=== PATIENT | female | born 2000 | race Caucasian/White ===

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

== ENCOUNTER → 2022-12-28 | Outpatient (CLI) | payer BC ==
[~2022-12-28] MED LIST changes: +FLUT50SP17; -FLUTISP; -HEPARIN SOD (PORCINE) 5000UNITS/ML 1ML VIAL/SYRINGE SQ ONE; -LIDOCAINE 1% MDV 20ML VIAL SQ PRN; -LR 1,000 ML IV ONE; +TRAM50TA2 PO; -ceFAZolin SOD 2 GM in IV 1 EA IV ONE
[2022-12-28 15:07] LABS: CREATININE,RANDOM URINE 21.2 MG/DL
[2022-12-28 15:11] LABS: TOTAL PROTEIN,RANDOM URINE < 6.0 MG/DL (0.0-14.0)
== END ==
LOC: M RAD 09:48
PROVIDERS: ATTEND Obstetrics & Gynecology
DX: O16.3 Unspecified maternal hypertension, third trimester (principal); O28.8 Other abnormal findings on antenatal screening of mother; Z3A.32 32 weeks gestation of pregnancy

== ENCOUNTER → 2023-01-06 | Outpatient (CLI) | payer BC ==
[2023-01-06 13:44] LABS: HEMATOCRIT 32.4 % (36.0-47.0); HEMOGLOBIN 10.1 g/dl (12.0-15.5); MEAN CORPUSCULAR HEMOGLOBIN 23.2 pg (27.0-33.0); MEAN CORPUSCULAR HGB CONC 31.2 g/dl (32.0-36.5); MEAN CORPUSCULAR VOLUME 74.3 fl (80.0-96.0); PLATELET COUNT, AUTOMATED 278 10^3/uL (150-450); RED BLOOD COUNT 4.36 10^6/uL (4.00-5.40)
[2023-01-06 14:10] LABS: ALBUMIN 2.6 G/DL (3.2-5.2); ALKALINE PHOSPHATASE 117 U/L (46-116); ALT/SGPT 19 U/L (7.0-40); AST/SGOT 11 U/L (<34); BILIRUBIN,TOTAL 0.4 MG/DL (0.3-1.2); BLOOD UREA NITROGEN 7 MG/DL (9-23); CALCIUM LEVEL 9.3 MG/DL (8.5-10.1); CARBON DIOXIDE LEVEL 24 MMOL/L (20-31); CHLORIDE LEVEL 104 MMOL/L (98-107); CREATININE FOR GFR 0.54 MG/DL (0.55-1.30); GLUCOSE, FASTING 78 MG/DL (60-100); POTASSIUM SERUM 4.2 MMOL/L (3.5-5.1); SODIUM LEVEL 138 MMOL/L (136-145); TOTAL PROTEIN 6.7 G/DL (5.7-8.2)
== END ==
LOC: M PLALAB 09:38
PROVIDERS: ATTEND Obstetrics & Gynecology
DX: O16.3 Unspecified maternal hypertension, third trimester (principal)

== ENCOUNTER 2023-01-17 17:03 | Outpatient (CLI) | payer BC ==
[~2023-01-17] VITALS: Ht 165.1 cm; Wt 107.8 kg
[2023-01-17 17:19] VITALS: BP 132/65
[2023-01-17] MEDS ORDERED: PRENTAB9 PO (17:30)
[2023-01-17] MEDS ORDERED: ADDE25CA PO (17:30)
[2023-01-17] MEDS ORDERED: HOME MED LIST COMPLETE! XX SCH (17:30)
[2023-01-17 18:04] LABS: APPEARANCE, URINE HAZY (CLEAR); BACTERIA, URINE AUTO 3+ (NEGATIVE); BILIRUBIN, URINE AUTO NEGATIVE (NEGATIVE); BLOOD, URINE BLOOD NEGATIVE (NEGATIVE); COLOR, URINE YELLOW (YELLOW); GLUCOSE, URINE (UA) AUTO 1+ mg/dL (NEGATIVE); KETONE, URINE AUTO NEGATIVE (NEGATIVE); LEUKOCYTE ESTERASE, URINE AUTO 3+ (NEGATIVE); MUCUS, URINE SMALL (NEGATIVE); NITRITE, URINE AUTO NEGATIVE (NEGATIVE); PROTEIN, URINE AUTO NEGATIVE (NEGATIVE); RBC, URINE AUTO 2 /HPF (0-3); SPECIFIC GRAVITY URINE AUTO 1.012 (1.002-1.035); SQUAMOUS EPITHELIAL CELL UR AU 6 /HPF (0-6); UROBILINOGEN, URINE AUTO 0.2 mg/dL (0.0-2.0); WBC, URINE AUTO 9 /HPF (0-3)
[2023-01-17] MEDS ORDERED: FLUCONAZOLE 50MG TABLET PO ONE (18:35)
[2023-01-17 18:58] VITALS: BP 128/59
[2023-01-17] MEDS ORDERED: ACETAMINOPHEN 500 MG TAB PO ONE (19:15)
== END 2023-01-17 19:45 | disposition home or self-care (01) ==
LOC: M LDO 17:03
PROVIDERS: ATTEND Advanced Practice Midwife
DX: O26.893 Other specified pregnancy related conditions, third trimester (principal); M54.50 Low back pain, unspecified; O23.593 Infection of other part of genital tract in pregnancy, third trimester; B37.9 Candidiasis, unspecified; O99.343 Other mental disorders complicating pregnancy, third trimester; F90.0 Attention-deficit hyperactivity disorder, predominantly inattentive type; O13.3 Gestational [pregnancy-induced] hypertension without significant proteinuria, third trimester; O99.213 Obesity complicating pregnancy, third trimester; E66.9 Obesity, unspecified; Z3A.35 35 weeks gestation of pregnancy
CPT/HCPCS: 59025; 76815; 81001; 87081; 87086; G0463

== ENCOUNTER 2023-01-26 22:08 | Outpatient (CLI) | payer BC ==
[~2023-01-26] VITALS: Ht 160 cm; Wt 110.6 kg
[~2023-01-26 22:08] MED LIST changes: +ADDE25CA PO; +PRENTAB9 PO
[2023-01-26 22:34] VITALS: BP 109/55
[2023-01-26] MEDS ORDERED: HOME MED LIST COMPLETE! XX SCH (22:50)
[2023-01-26 23:52] VITALS: BP 124/78
[2023-02-01] MEDS ORDERED: CVS1CHW13 PO (09:55)
== END 2023-01-26 23:59 | disposition home or self-care (01) ==
LOC: M LDO 22:08
PROVIDERS: ATTEND Advanced Practice Midwife
DX: O36.8130 Decreased fetal movements, third trimester, not applicable or unspecified (principal); O13.3 Gestational [pregnancy-induced] hypertension without significant proteinuria, third trimester; O99.343 Other mental disorders complicating pregnancy, third trimester; F90.8 Attention-deficit hyperactivity disorder, other type; Z3A.36 36 weeks gestation of pregnancy
CPT/HCPCS: 59025; G0463

== ENCOUNTER 2023-06-21 11:30 | Inpatient (IN) | payer BC ==
[~2023-06-21] VITALS: Ht 165.1 cm; Wt 86.3 kg
[~2023-06-21 11:30] MED LIST changes: +CVS1CHW13 PO; -FLUT50SP17; +FLUTISP
[2023-06-21] MEDS ORDERED: MED REC IN PROGRESS XX SCH (11:55)
[2023-06-21] MEDS ORDERED: VENL37.598 PO (12:04)
[2023-06-21] MEDS ORDERED: HOME MED LIST COMPLETE! XX SCH (12:05)
[2023-06-21 13:17] LABS: HEMATOCRIT 41.9 % (36.0-47.0); HEMOGLOBIN 13.6 g/dl (12.0-15.5); MEAN CORPUSCULAR HEMOGLOBIN 23.2 pg (27.0-33.0); MEAN CORPUSCULAR HGB CONC 32.5 g/dl (32.0-36.5); MEAN CORPUSCULAR VOLUME 71.5 fl (80.0-96.0); PLATELET COUNT, AUTOMATED 236 10^3/uL (150-450); RED BLOOD COUNT 5.86 10^6/uL (4.00-5.40); WHITE BLOOD COUNT 11.4 10^3/uL (4.0-10.0)
[2023-06-21 13:44] LABS: ETHYL ALCOHOL (ETHANOL) < 0.003 % (0.000-0.010)
[2023-06-21 13:45] LABS: HCG, SERUM QUALITATIVE NEGATIVE (NEGATIVE); SALICYLATE LEVEL < 3.0 MG/DL (<30)
[2023-06-21 13:46] LABS: ALBUMIN 3.7 G/DL (3.2-5.2); ALKALINE PHOSPHATASE 75 U/L (46-116); ALT/SGPT 46 U/L (7.0-40); AST/SGOT 23 U/L (<34); BILIRUBIN,DIRECT 0.1 MG/DL (<0.4); BILIRUBIN,TOTAL 0.3 MG/DL (0.3-1.2); BLOOD UREA NITROGEN 12 MG/DL (9-23); CALCIUM LEVEL 9.1 MG/DL (8.5-10.1); CARBON DIOXIDE LEVEL 23 MMOL/L (20-31); CHLORIDE LEVEL 108 MMOL/L (98-107); CREATININE FOR GFR 0.65 MG/DL (0.55-1.30); GLUCOSE, FASTING 87 MG/DL (60-100); POTASSIUM SERUM 4.4 MMOL/L (3.5-5.1); SODIUM LEVEL 139 MMOL/L (136-145); TOTAL PROTEIN 7.6 G/DL (5.7-8.2)
[2023-06-21 13:48] LABS: THYROID STIMULATING HORMONE 1.036 uIU/ML (0.48-4.17)
[2023-06-21 14:07] LABS: AMPHETAMINES LEVEL URINE NEGATIVE (NEGATIVE); BARBITURATES URINE NEGATIVE (NEGATIVE); BENZODIAZEPINES URINE NEGATIVE (NEGATIVE); CANNABINOIDS URINE NEGATIVE (NEGATIVE); COCAINE METABOLITE URINE NEGATIVE (NEGATIVE); METHADONE URINE NEGATIVE (NEGATIVE); OPIATES URINE NEGATIVE (NEGATIVE); PHENCYCLIDINE URINE NEGATIVE (NEGATIVE)
[2023-06-21] MEDS ORDERED: MAALOX 30 ML SUSP *UDC PO PRN (15:35)
[2023-06-21] MEDS ORDERED: MOM 30ML SUSPENSION UDC PO PRN (15:35)
[2023-06-21] MEDS ORDERED: diphenhydrAMINE 25MG CAP PO PRN (15:35)
[2023-06-21] MEDS ORDERED: ACETAMINOPHEN TAB 650MG DOSE (2X325MG) PO PRN (15:35)
[2023-06-21] MEDS ORDERED: IBUPROFEN 400MG TAB PO PRN (15:35)
[2023-06-21 18:05] VITALS: BP 135/82; TEMP 98.8; O2SAT 99
[2023-06-21] MEDS: traZODone 50 MG TAB PO PRN (19:53)
[2023-06-22 06:48] VITALS: BP 149/87; TEMP 98.1; O2SAT 98
[2023-06-22] MEDS ORDERED: DEXTROAMPHETAMINE PO SCH (09:00)
[2023-06-22] MEDS ORDERED: AMPHETAMINE PO SCH (09:00)
[2023-06-22] MEDS: VENLAFAXINE **XR** 37.5 MG CAPSULE PO SCH (09:11)
[2023-06-22] MEDS ORDERED: INFLUENZA QUADRIVALENT PF VACCINE 0.5ML SYRINGE IM.IMMUN ONE (11:00)
[2023-06-22] MEDS ORDERED: VENL37.598 PO (16:09)
[2023-06-22 17:28] VITALS: BP 123/72; TEMP 97.6
[2023-06-22] MEDS: traZODone 50 MG TAB PO PRN (20:42)
[2023-06-23 06:52] VITALS: BP 123/67; TEMP 98.4; O2SAT 98
[2023-06-23] MEDS: VENLAFAXINE **XR** 37.5 MG CAPSULE PO SCH (08:39)
== END 2023-06-23 10:18 | disposition home or self-care (01) | DRG 757 ==
LOC: M ED 11:30 → M ED INP 15:34 → M PSY 18:01
PROVIDERS: ADMIT Student in an Organized Health Care Education/Training Program; ATTEND Student in an Organized Health Care Education/Training Program
DX: F53.0 Postpartum depression (principal); F32.A Depression, unspecified; F41.9 Anxiety disorder, unspecified; F43.20 Adjustment disorder, unspecified; F90.9 Attention-deficit hyperactivity disorder, unspecified type; F60.3 Borderline personality disorder; F79 Unspecified intellectual disabilities; R45.851 Suicidal ideations; Z86.16 Personal history of COVID-19; Z79.899 Other long term (current) drug therapy; Z20.822 Contact with and (suspected) exposure to COVID-19; Z90.49 Acquired absence of other specified parts of digestive tract; Z91.52 Personal history of nonsuicidal self-harm

== ENCOUNTER 2024-01-28 14:49 | Emergency (ER) | payer BC ==
[~2024-01-28] VITALS: Ht 165.1 cm; Wt 82.4 kg
[~2024-01-28 14:49] MED LIST changes: +VENL37.598 PO
[2024-01-28 15:15] LABS: BASO # 0.1 10^3/uL (0.0-0.2); BASO % 0.4 % (0.0-1.0); EOS # 0.1 10^3/uL (0.0-0.5); EOS % 0.8 % (0.0-3.0); HEMATOCRIT 43.2 % (36.0-47.0); HEMOGLOBIN 13.9 g/dl (12.0-15.5); LYMPH # 2.9 10^3/uL (1.5-5.0); LYMPH % 26.3 % (24.0-44.0); MEAN CORPUSCULAR HEMOGLOBIN 23.8 pg (27.0-33.0); MEAN CORPUSCULAR HGB CONC 32.2 g/dl (32.0-36.5); MONO # 0.8 10^3/uL (0.0-0.8); MONO % 7.4 % (2.0-8.0); NEUTROPHILS # 7.2 10^3/uL (1.5-8.5); NEUTROPHILS % 64.7 % (36.0-66.0); PLATELET COUNT, AUTOMATED 269 10^3/uL (150-450); RED BLOOD COUNT 5.84 10^6/uL (4.00-5.40); WHITE BLOOD COUNT 11.2 10^3/uL (4.0-10.0)
[2024-01-28] MEDS: NS 1,000 ML IV ONE (15:22)
[2024-01-28] MEDS: MORPHINE 2 MG/ML 1ML VIAL IV ONE (15:23)
[2024-01-28 15:47] LABS: ALBUMIN 3.9 G/DL (3.2-5.2); ALKALINE PHOSPHATASE 69 U/L (46-116); ALT/SGPT 21 U/L (7.0-40); AST/SGOT 12 U/L (<34); BILIRUBIN,TOTAL 0.3 MG/DL (0.3-1.2); BLOOD UREA NITROGEN 17 MG/DL (9-23); CALCIUM LEVEL 9.7 MG/DL (8.5-10.1); CARBON DIOXIDE LEVEL 28 MMOL/L (20-31); CHLORIDE LEVEL 106 MMOL/L (98-107); CREATININE FOR GFR 0.82 MG/DL (0.55-1.30); GLOMERULAR FILTRATION RATE > 60.0 (>60); GLUCOSE, FASTING 74 MG/DL (60-100); HCG, SERUM QUANTITATIVE < 2.6 MIU/ML (<4.2); POTASSIUM SERUM 4.2 MMOL/L (3.5-5.1); SODIUM LEVEL 138 MMOL/L (136-145); TOTAL PROTEIN 7.8 G/DL (5.7-8.2)
[2024-01-28 15:56] LABS: APPEARANCE, URINE CLEAR (CLEAR); BACTERIA, URINE AUTO NEGATIVE (NEGATIVE); BILIRUBIN, URINE AUTO NEGATIVE (NEGATIVE); BLOOD, URINE BLOOD 3+ (NEGATIVE); COLOR, URINE YELLOW (YELLOW); GLUCOSE, URINE (UA) AUTO NEGATIVE (NEGATIVE); KETONE, URINE AUTO NEGATIVE (NEGATIVE); LEUKOCYTE ESTERASE, URINE AUTO NEGATIVE (NEGATIVE); MUCUS, URINE SMALL (NEGATIVE); NITRITE, URINE AUTO NEGATIVE (NEGATIVE); PROTEIN, URINE AUTO NEGATIVE (NEGATIVE); RBC, URINE AUTO 4 /HPF (0-3); SPECIFIC GRAVITY URINE AUTO 1.021 (1.002-1.035); SQUAMOUS EPITHELIAL CELL UR AU 2 /HPF (0-6); UROBILINOGEN, URINE AUTO 0.2 mg/dL (0.0-2.0); WBC, URINE AUTO 1 /HPF (0-3)
[2024-01-28] MEDS: KETOROLAC 30 MG/ML 1ML VIAL IV ONE (16:22)
[2024-01-28 16:33] VITALS: BP 108/72; TEMP 97.9; O2SAT 99
[2024-01-28 17:21] LABS: GC DNA AMPLIFICATION NEGATIVE (NEGATIVE)
== END 2024-01-28 16:40 | disposition home or self-care (01) ==
LOC: M ED 14:49
DX: N94.6 Dysmenorrhea, unspecified (principal); Z79.899 Other long term (current) drug therapy; Z97.5 Presence of (intrauterine) contraceptive device
CPT/HCPCS: 76830; 76856; 80047; 80053; 81001; 84702; 85025; 86850; 86900; 86901; 87086; 87810; 87850; 96361; 96374; 96375; 99284; J1885